=== PATIENT | female | born 1975 | race Caucasian/White ===

== ENCOUNTER 2017-12-30 14:51 | Inpatient (IN) | payer OTHER ==
--- OUTSIDE RECORDS SUMMARY | 2017-12-30 15:25 | XMS REPORT ---
:1975 External Reference #:[id number] Author Organization [employer] Address [address] [place] [address] [place] [address] Phone [phone] Care Team Providers Name Role Phone Derrell Galan MD Primary Care Physician Unavailable Payers Type Date Identification Numbers Payment Provider Subscriber Commercial Policy Number: [id number] Tyson Tong Group Name: [id number] [address] PayID: [id number] [place] [address] Medigap Part B Expires: 2017 Policy Number: [facility] Radha Jc [id number] Ppo Alycia Group Number: [id number] [address] [address] PayID: [id number] EITAN Bernstein [id number] Medigap Part B Expires: 2017 Policy Number: Medicaid Radha Tong [id number] PayID: [id number] [address] [place] [address] Problems Description No Information Family History Date Family Member(s) Problem(s) Comments General Heart Disease General cancer Social History Type Date Description Comments ETOH Use Denies alcohol use Smoking patient uses e cig Exercise Type/Frequency Negative For Does not exercise Allergies, Adverse Reactions, Alerts Date Description Reaction Status Severity Comments 06/01/2013 NKDA active Medications Medication Date Status Form Strength Qnty SIG Indications Ordering Provider Vistaril Active Unknown Wellbutrin SR Active Unknown Zyrtec Allergy Active Unknown Lisinopril Active Unknown Nadolol Active Unknown Ortho-Cyclen Active Unknown Prilosec Active Unknown Effexor XR Active Unknown Nystatin/Triamcin Active Unknown olone Albuterol Sulfate Active Unknown Meclizine HCL Active Unknown Colace Active Unknown Oxycodone HCL Active Unknown Amrix Active Unknown Ibuprofen Active Unknown Vital Signs Date Vital Result Comment 12/18/2017 Height 60 inches 5'0" Weight 224.25 lb Heart Rate 88 /min BP Systolic 124 mmHg BP Diastolic 80 mmHg Respiratory Rate 18 /min Pain Level 8 BMI (Body Mass Index) 43.8 kg/m2 06/01/2013 Height 60 inches 5'0" Weight 274.00 lb Heart Rate 76 /min BP Systolic 157 mmHg BP Diastolic 100 mmHg BMI (Body Mass Index) 53.5 kg/m2 Results Description No Information Procedures Date CPT Code Description Status 06/01/2013 67553 Xray Knee 3 Views Completed 06/01/2013 35324 Xray Knee 3 Views Completed Encounters Type Date Location Provider CPT E/M Dx Office Visit 06/01/2013 1:15p [facility] M.D. 94004 [phone] [facility] Plan of Care Future Appointment(s):01/19/2018 11:15 am - [facility] - Kemi Valderrama M.D.G56.03 Carpal tunnel syndrome, bilateral upper limbsFollow up:Follow up: 9-10 days postop Follow up :
[2017-12-30] MEDS ORDERED: NS 0.9% 1000 ML* 2,000 ML IV ONE (15:42)
--- NOTE | 2017-12-30 16:05 | ED ---
Syncope/Near Syncope - HPI Summary HPI Summary: Patient is a 42 y/o F w/ c/o syncope for the past three days. Provider in the room 1540. She reports that she was started on Effexor four days ago. Three days ago, she was in the kitchen with her daughter. She began to feel dizzy, experienced LOC in the kitchen. When she awoke, she states her daughter was standing over her screaming at her. She reports syncopal episodes the past two days as well. She notes some memory loss, slurred speech, visual hallucinations and body spasms in the room. RESENDIZ and dizziness are denied in room presently. Patient also notes some brief blurred vision, which resolved in the room. Patient reports that she has taken Effexor previously without these Sx. However , she notes at this time she was just taking Effexor and she is currently taking suboxone for chronic back pain. She called Dr. Vasquez today; a nurse picked up, told her that she would be contacted soon. An hour later, she received a call and was told to come to ED by ambulance. Patient is on depo, no periods. Patient smokes, alcohol and drug usage is denied. FHx of CVA in brother , PSHx of cholecystecomy, ectopic , gastric sleeve, and oral surgery. On triage, associated severity is 7/10, moving aggravates Sx, nothing is noted to alleviate Sx. BP is 90/47, pulse 71, o2 is 99. Of note, SAMSON Soto states that BP is difficult to obtain, possibly due to myoclonic jerks. Charles DAVIES did a manual BP that was 88 systolic. Allergies/Adverse Reactions: Allergies Allergy/AdvReac Type Severity Reaction Status Date / Time morphine Allergy HYPERACTIVE Verified 12/23/17 11:07 Home Medications: Home Medications Amitriptyline TAB* [Elavil TAB*] 50 mg PO BEDTIME 12/30/17 [History Confirmed ] Bisoprolol/Hydrochlorothiazide [Ziac 5-6.25 mg-] 1 tab PO DAILY 12/30/17 [ History Confirmed 12/30/17] Buprenorphine HCl/Naloxone HCl [Suboxone] 1 film SL BID 12/30/17 [History Confirmed 12/30/17] Bupropion XL* [Wellbutrin XL *] 150 mg PO DAILY 12/30/17 [History Confirmed 12/09] Cetirizine* [ZyrTEC 10 MG TAB*] 10 mg PO DAILY 12/30/17 [History Confirmed 12/30] Cyclobenzaprine TAB* [Flexeril 10 MG TAB*] 10 mg PO BEDTIME 12/30/17 [History Confirmed 12/30/17] Gabapentin TAB(NF) [Neurontin 600 mg TAB(NF)] 600 mg PO TID 12/30/17 [History Confirmed 12/30/17] Meclizine TAB* [Antivert 12.5 TAB*] 12.5 mg PO TID 12/30/17 [History Confirmed 12/30/17] Naproxen TAB* [Naprosyn 250 mg TAB*] 500 mg PO BID 12/30/17 [History Confirmed 12/30/17] Pantoprazole TAB (NF) [Protonix TAB (NF)] 40 mg PO DAILY 12/30/17 [History Confirmed 12/30/17] Sertraline* [Zoloft*] 200 mg PO DAILY 12/30/17 [History Confirmed 12/30/17] Valsartan TAB* [Diovan TAB*] 320 mg PO DAILY 12/30/17 [History Confirmed ] Venlafaxine EXT RELEASE CAP* [Effexor Xr CAP*] 150 mg PO DAILY 12/30/17 [ History Confirmed 12/30/17] medroxyPROGESTERone ACETATE* [DEPO-Provera*] 150 mg IM Q3M 12/30/17 [History Confirmed 12/30/17] - History Of Current Complaint Time Seen by Provider: 12/30/17 15:32 Hx Obtained From: Patient, Family/[employer] - male partner Onset/Duration: Lasting Days - syncope onset three days ago, Still Present - memory loss, slurred speech, visual hallucinations and body spasms Timing: Constant - memory loss, slurred speech, visual hallucinations and body spasms Context: Witnessed Activity At Onset: At Rest Associated Head Trauma: Yes Aggravating Factor(s): Nothing Alleviating Factor(s): Nothing Associated Signs And Symptoms: Dizzy, Head Trauma (Recent), Other - POSITIVE: syncope, memory loss, slurred speech, visual hallucinations, blurred vision and body spasms; dizziness before, none presently NEGATIVE: RESENDIZ Frequency: Episodes x___ - 3, Ongoing Incidents Of Syncope For (in Mins/Days/ Weeks/Years) - 3 days - Allergies/Home Medications Allergies/Adverse Reactions: Allergies Allergy/AdvReac Type Severity Reaction Status Date / Time morphine Allergy HYPERACTIVE Verified 12/23/17 11:07 Home Medications: Home Medications Amitriptyline TAB* [Elavil TAB*] 50 mg PO BEDTIME 12/30/17 [History Confirmed ] Bisoprolol/Hydrochlorothiazide [Ziac 5-6.25 mg-] 1 tab PO DAILY 12/30/17 [ History Confirmed 12/30/17] Buprenorphine HCl/Naloxone HCl [Suboxone] 1 film SL BID 12/30/17 [History Confirmed 12/30/17] Bupropion XL* [Wellbutrin XL *] 150 mg PO DAILY 12/30/17 [History Confirmed 12/09] Cetirizine* [ZyrTEC 10 MG TAB*] 10 mg PO DAILY 12/30/17 [History Confirmed 12/30] Cyclobenzaprine TAB* [Flexeril 10 MG TAB*] 10 mg PO BEDTIME 12/30/17 [History Confirmed 12/30/17] Gabapentin TAB(NF) [Neurontin 600 mg TAB(NF)] 600 mg PO TID 12/30/17 [History Confirmed 12/30/17] Meclizine TAB* [Antivert 12.5 TAB*] 12.5 mg PO TID 12/30/17 [History Confirmed 12/30/17] Naproxen TAB* [Naprosyn 250 mg TAB*] 500 mg PO BID 12/30/17 [History Confirmed 12/30/17] Pantoprazole TAB (NF) [Protonix TAB (NF)] 40 mg PO DAILY 12/30/17 [History Confirmed 12/30/17] Sertraline* [Zoloft*] 200 mg PO DAILY 12/30/17 [History Confirmed 12/30/17] Valsartan TAB* [Diovan TAB*] 320 mg PO DAILY 12/30/17 [History Confirmed ] Venlafaxine EXT RELEASE CAP* [Effexor Xr CAP*] 150 mg PO DAILY 12/30/17 [ History Confirmed 12/30/17] medroxyPROGESTERone ACETATE* [DEPO-Provera*] 150 mg IM Q3M 12/30/17 [History Confirmed 12/30/17] PMH/Surg Hx/FS Hx/Imm Hx Previously Healthy: No Endocrine/Hematology History: Denies: Hx Diabetes Cardiovascular History: Reports: Hx Hypertension Denies: Hx Pacemaker/ICD History: Denies: Hx Renal Disease Musculoskeletal History: Reports: Hx Back Problems - "broken back" Sensory History: Denies: Hx Hearing Aid Psychiatric History: Reports: Hx Depression, Hx Substance Abuse - on suboxone Denies: Hx Panic Disorder - Surgical History Surgery Procedure, Year, and Place: CHOLECYSTECTOMY. ECTOPIC - & RUPTURED FALLOPIAN TUBE. GASTRIC SLEEVE. ORAL SURGERY - UNDER SEDATION Infectious Disease History: No Infectious Disease History: Denies: Traveled Outside the [place] in Last 30 Days - Family History Known Family History: Positive: Other - CVA in brother - Social History Lives: With Family Alcohol Use: None Substance Use Type: Reports: Prescribed - suboxone Smoking Status (MU): Current Every Day Smoker Type: Cigarettes Review of Systems Negative: Fever - on vitals, temp is 97.6 F Positive: Blurred Vision - resolved in the room Cardiovascular: Negative Respiratory: Negative Gastrointestinal: Negative Positive: no symptoms reported Positive: Arthralgia - chronic back pain Skin: Negative Neurological: Other - POSITIVE: memory loss, visual hallucinations, body spasms ; dizziness in the past, none presently Positive: Syncope, Slurred Speech. Negative: Headache Psychological: Other - calm, cooperative All Other Systems Reviewed And Are Negative: Yes Physical Exam - Summary Physical Exam Summary: Appearance: Well-appearing, no pain distress, well-nourished; frequent UE and LE myoclonic jerks. Skin: Warm, color reflects adequate perfusion, dry Head: Normal Head/Face inspection, atraumatic Eyes: Conjunctiva clear, Pupils 3mm, round reactive to light, EOMI, no nystagmus ENT: Normal inspection, oral mucosa moist Neck: Supple, no nodes, no JVD, spines nontender, full ROM Respiratory: Lungs clear, normal breath sounds, no respiratory distress Cardio: RRR, No murmur, pulses normal, brisk capillary refill Abdomen: Soft, nontender Bowel sounds: Present Musculoskeletal: Strength Intact/ROM intact, no calf tenderness, no edema, no asterixis Psychological: Normal Neuro: A&O x3, CN II-XII intact, motor function 5/5, sensation intact, cerebellar normal;myoclonic jerks upper an lower extremities, no fasciculations , no focal deficit, GCS 15, NIH 0 Triage Information Reviewed: Yes Vital Signs On Initial Exam: Initial Vitals Temp Pulse Resp BP Pulse Ox 97.6 F 75 16 90/47 95 12/30/17 15:21 12/30/17 15:21 12/30/17 15:21 12/30/17 15:21 12/30/17 15:21 Vital Signs Reviewed: Yes Diagnostics - Vital Signs Vital Signs Temp Pulse Resp BP Pulse Ox 12/30/17 15:21 97.6 F 75 16 90/47 95 - Laboratory Result Diagrams: 12/31/17 05:24 12/31/17 05:24 Lab Statement: Any lab studies that have been ordered have been reviewed, and results considered in the medical decision making process. - Radiology CXR Xray Interpretation: Positive (See Comments) Radiology Interpretation Completed By: Radiologist - IMPRESSION: The appearance of increased density overlying the bilateral lungs could be due to interstitial density, vascular congestion or simply be the consequence of an incomplete inspiratory effort. This report was reviewed by ED physician. - CT brain ct CT Interpretation: No Acute Changes CT Interpretation Completed By: Radiologist - negative unenhanced ct; this report was reviewed by ed physician - EKG 1616 Cardiac Rate: NL - rate of 68 bpm EKG Rhythm: Sinus Rhythm ST Segment: Non-Specific Ectopy: None EKG Interpretation: nml AV/IV CT, nml QTc, and nml axis EKG Comparison: Other - no prior to compare Re-Evaluation - Re-Evaluation First Eval Re-Evaluation Time: 17:32 Change: Unchanged Comment: Informed patient of admission to [facility], patient is agreeable with plan. Course/Dx Assessment/Plan: Patient is a 42 y/o F w/ c/o syncope for the past three days. She reports that she was started on Effexor four days ago. She reports syncopal episodes the past two days as well. She notes some memory loss, slurred speech, visual hallucinations and body spasms in the room. RESENDIZ and dizziness are denied in room presently. Patient also notes some brief blurred vision, which resolved in the room. Patient reports that she has taken Effexor previously without these Sx. However, she notes at this time she was just taking Effexor and she is currently taking suboxone for chronic back pain. Dr. Vasquez was called today, recommended patient come to ED. Physical exam showed A&O x3, CN II-XII intact, motor function 5/5, sensation intact, cerebellar normal; GCS 15, NIH 0. Frequent UE and LE myoclonic jerks. During ED course, patient was given Ativan and fluids. Labs showed BNP 109, CRP 72.5, total creatine kinase 516, alk phos 197, BUN 50, creatinine 2.49, hgb 10.7, hct 33. CXR IMPRESSION: The appearance of increased density overlying the bilateral lungs could be due to interstitial density, vascular congestion or simply be the consequence of an incomplete inspiratory effort. Brain CT showed negative unenhanced CT. EKG showed sinus rhythm and rate of 68 bpm, non-specific ST, no ectopy, nml AV/IV CT, nml QTc, and nml axis. Pt's BP was low on admission, confirmed with manual cuff. Pt had no sign of sepsis or cardiac compromise, or any distress with these low BP's. BP 's thought possibly affected by myoclonic jerking. Pt hydrated with 2L NS in ED with some improvement in BP. Pt's myoclonic jerking possibly due to medication reaction with initiation of Effexor 1 day prior to sx onset. Myoclonic jerking also possibly due to acute kidney injury/uremia. Patient's case was discussed with Dr. Gonsalves at 1714, recommends admission. 1728 - Dr. Preciado was consulted, Dr. Preciado accepts patient for admission. Patient is agreeable with admission. Dx of syncope, acute kidney injury, and myoclonic jerking, hypotension, elevated CK. - Diagnoses Differential Diagnosis/HQI/PQRI: Positive: Cerebral Vascular Accident, Hypovolemia, Metabolic Reaction, Medication Reaction, Seizure Provider Diagnoses: Syncope, Acute kidney injury, Myoclonic jerking, Hypotension, Elevated CPK - Physician Notifications Discussed Care of Patient With: Duran Gonsalves Time Discussed With Above Provider: 17:14 Instructed by Provider To: Other - Patient's case was discussed with Dr. Gonsalves at 1714, recommends admission. 1729 - Dr. Preciado was consulted, Dr. Preciado accepts patient for admission - Critical Care Time Critical Care Time: 30-74 min - 30 minutes Discharge - Sign-Out/Discharge Documenting (check all that apply): Patient Departure - admit - Discharge Plan Condition: Good Disposition: ADMITTED TO [facility] - Billing Disposition and Condition Condition: GOOD Disposition: Admitted to [facility] - Attestation Statements Document Initiated by Bonyibtheron: Yes Documenting Scribe: Jaime Rivera Provider For Whom Scribe is Documenting (Include Credential): Sandhya Guevara MD Scribe Attestation: Jaime Sykes , scribed for Sandhya Guevara MD on 01/01/18 at 0316. Scribe Documentation Reviewed: Yes Provider Attestation: The documentation as recorded by the Jaime benavidez accurately reflects the service I personally performed and the decisions made by me, Sandhya Guevara MD
[2017-12-30 16:31] LABS: INR 0.98 (0.77-1.02)
[2017-12-30 16:32] LABS: ABS Basophils 0 10^3/ul (0-0.2); ABS Eosinophils 0.4 10^3/ul (0-0.6); ABS Lymphocytes 2.5 10^3/ul (1.0-4.8); ABS Monocytes 0.8 10^3/ul (0-0.8); ABS Neutrophils 3.8 10^3/ul (1.5-7.7); ABS Nucleated RBC 0 10^3/ul; Eosinophil % 5.4 % (0-6); Hematocrit 33 % (35-47); Hemoglobin 10.7 g/dl (12.0-16.0); Lymphocyte % 33.1 % (25-47); Mean Corpuscular HGB Conc 33 g/dl (31-36); Mean Corpuscular Hemoglobin 26 pg (27-31); Mean Corpuscular Volume 81 fL (80-97); Mean Platelet Volume 10.3 um3 (7.4-10.4); Nucleated Red Blood Cells % 0.1; Platelet Count 203 10^3/ul (150-450); Red Blood Count 4.05 10^6/ul (4.00-5.40); Red Cell Distribution Width 17 % (10.5-15); White Blood Count 7.7 10^3/ul (3.5-10.8)
[2017-12-30 16:34] LABS: EGFR Non-African American 21.3 (>60)
--- NOTE | 2017-12-30 16:35 | RAD ---
Indication: Syncope. Memory loss. Tremor. Comparison: No relevant prior exams available on the [facility] PACS for comparison. Technique: Noncontrast CT vertex of skull through foramen magnum. Report: Mild mild motion artifact noted. The sulci, ventricles, and basal cisterns are normal for age. Elizalde matter white matter differentiation is preserved without evidence for edema. No intra or extra axial hemorrhage, mass, or fluid collection detected. Unremarkable visualized orbital contents. Unremarkable calvarium and skull base. Unremarkable scalp. The visualized paranasal sinuses and mastoid air spaces are clear. IMPRESSION: #. Negative unenhanced head CT.
--- NOTE | 2017-12-30 16:52 | RAD ---
INDICATION: Syncope COMPARISON: None. TECHNIQUE: Single AP portable view of the chest was obtained. FINDINGS: Image quality is compromised due to the relative inferiority of a portable chest x-ray. The heart and mediastinum exhibit normal size and contour. What appears to be a poor inspiratory effort causes the appearance of increased interstitial lung markings and/or engorgement of the pulmonary vasculature. There is no lobar consolidation. Visualized bones are normal for the patient's age. IMPRESSION: The appearance of increased density overlying the bilateral lungs could be due to interstitial density, vascular congestion or simply be the consequence of an incomplete inspiratory effort.
[2017-12-30] MEDS ORDERED: LORazepam TAB(*) 1 MG PO ONE (17:16)
[2017-12-30] MEDS ORDERED: LORazepam TAB(*) 1 MG PO PRN (18:39)
[2017-12-30] MEDS ORDERED: Acetaminophen TAB* 325 MG PO PRN (18:46)
[2017-12-30] MEDS ORDERED: Al Hydrox/Mg Hydrox/Simet LIQ* 30 ML UDC PO PRN (18:46)
[2017-12-30] MEDS ORDERED: cefTRIAXone(*) 1 GM in NS 0.9% 50 ML* 50 ML IVPB SCH (20:00)
--- NOTE | 2017-12-30 20:54 | RAD ---
EXAM: MR Lumbar Spine Without Intravenous Contrast EXAM DATE/TIME: 12/30/2017 8:07 PM CLINICAL HISTORY: The patient age is 42 years old and is female; Pain and signs and symptoms; Other: Involuntary twitching bilat legs; Low back pain; Patient HX: Pt C/O low back pain and involuntary twitching in bilat legs; Additional info: R/O stenosis. *pt unable to control leg movements- a lot of motion in images. We immobilized pt's legs as best as possible with a strap and i ran all propeller scans to reduce motion artifact. Best possible images sent. Facility exam id and description: Mr lsp wo mri lumbar spine w/o TECHNIQUE: Magnetic resonance images of the lumbar spine without intravenous contrast in multiple planes. COMPARISON: No relevant prior studies available. FINDINGS: Artifacts: Motion artifact limits this study. Vertebrae: There is grade I anterolisthesis of L3 on L4. The lumbar vertebral bodies are normal in height, without acute marrow edema. Spinal cord: The distal end of the conus medullaris ends at T12, normal in position. Soft tissues: There is nonspecific edema within the subcutaneous tissues posterior to lumbar spine. DISCS/SPINAL CANAL/NEURAL FORAMINA: L1-L2: There is no significant narrowing of the thecal sac or neural foramina. L2-L3: There is no significant narrowing of the thecal sac or neural foramina. L3-L4: There is a decrease of disc height at this level, bilateral facet arthropathy. A broad based disc protrusion is visualized, with mild narrowing of the thecal sac and narrowing of both lateral recesses. Moderate to severe right and severe left neural foramina is identified. There is encroachment on the exiting left L3 nerve root. L4-L5: There is bilateral facet arthropathy. Mild disc bulging is visualized, without significant narrowing of the thecal sac. Moderate left neural foramina is identified. There is mild bulging of the right neural foramen, without significant neural foraminal narrowing. L5-S1: There is bilateral facet arthropathy. There is mild disc bulging, without significant narrowing of the thecal sac. Mild left neural foramina is identified. There is no significant narrowing of the right neural foramen. IMPRESSION: 1. There is grade I anterolisthesis of L3 on L4. 2. Degenerative changes are visualized from L3-4 through L5-S1, as described above. 3. At L3-4, a broad based disc protrusion is visualized, with mild narrowing of the thecal sac and narrowing of both lateral recesses. 4. Neural foramina is identified from L3-4 through L5-S1, as detailed above. There is encroachment on the exiting left L3 nerve root. 5. Additional findings described above. To contact [facility] with a general question: [facility] - [phone] For direct physician to physician contact: Physician Hotline - [phone] [facility] ([facility] Facility ID #[id number])
[2017-12-30 21:03] LABS: Urine Appearance Cloudy; Urine Blood 1+ (Negative); Urine Color Yellow; Urine Ketones Negative (Negative); Urine Protein Negative (Negative); Urine Red Blood Cell Trace(0-2/hpf) (Absent); Urine Specific Gravity 1.015 (1.010-1.030); Urine Urobilinogen Negative (Negative); Urine White Blood Cell Trace(0-5/hpf) (Absent)
[2017-12-30] MEDS: Heparin VIAL(*) 5000 UNITS/ML VIAL (FIVE THOUSAND) SUBCUT SCH (21:39)
[2017-12-30] MEDS: NS 0.9% 1000 ML* 1,000 ML IV SCH (21:39)
[2017-12-30] MEDS: Docusate CAP* 100 MG PO SCH (21:40)
[2017-12-30] MEDS: Buprenorphine/Naloxone 8-2 MG SL TAB* 1 TAB PO SCH (21:40)
--- NOTE | 2017-12-31 00:48 | HP ---
CC: Dr. Amira Vasquez; a staff from [facility] Medical Office in [facility]; Dr. Hedy Pickett; [facility]; Dr. Gonsalves * HISTORY AND PHYSICAL: DATE OF ADMISSION: 12/30/17 PRIMARY CARE PROVIDER: Dr. Amira Vasquez. CHIEF COMPLAINT: Episodes of fainting and bilateral lower extremity twitching. HISTORY OF PRESENT ILLNESS: Nano Tong is a 42-year-old female with history of obesity, status post gastric sleeve surgery, as well as "broken back " and chronic pain, who presented to the hospital complaining of passing out for the past 3 days and bilateral lower extremity jerking movements for the past 3 or 4 days. The patient stated that she was started on Effexor 4 days ago. Suboxone was started by [facility] approximately 3 weeks ago. The patient has a history of depression and goes to [facility] and she is also on Wellbutrin XL as well as Zoloft for her depression in addition to amitriptyline. The patient stated that a couple of times, she was walking up the stairs and her daughter noted that her mother was "out of it." That happened 3 days ago. Today, she was trying to walk up in the stairs and she walked up on the floor. Her daughter who witnessed the event stated that the patient had a syncopal episode/fainted for approximately 2 to 3 minutes. When the patient was evaluated in the emergency department, she was noted to have myoclonic jerking in bilateral lower extremities. It appears that the patient has significant polypharmacy including 4 antidepressants, Flexeril, and multiple other medications that could cause serotonin syndrome, which is now on the main diagnosis on differential. The patient also is in acute renal failure and has no urinary complaints. She had been eating and drinking fine and denies any problems with low p.o. intake in the past several days. The patient's systolic pressure is in the 70s, obtained in the emergency department. I suspect that the blood pressure cuff may have been too small for this large lady. She has no symptoms of hypotension when evaluated in the hospital bed, but she was not stood up for this evaluation today. She is going to be placed on overnight observation with the diagnosis of syncope and acute renal failure and question of serotonin syndrome. PAST MEDICAL HISTORY: 1. History of "broken back." The patient never had surgery for it, but has chronic pain due to that. 2. Status post cholecystectomy. 3. History for surgery for ectopic . 4. History of gastric sleeve surgery. 5. History of osteoarthritis of the left hip for which the patient was scheduled to have an MRI performed as outpatient, has not done so yet. 6. History of right-sided carpal tunnel syndrome with intermittent numbness in the fingers. 7. History of hypertension. MEDICATIONS: At home include: 1. Suboxone 4 mg b.i.d. 2. Depo-Provera 150 mg IM every 3 months. 3. Naproxen 500 mg b.i.d. 4. Ziac 5/6.25 one tablet daily. 5. Zyrtec 10 mg daily. 6. Wellbutrin XL 150 mg daily. 7. Protonix 40 mg daily. 8. Diovan 320 mg daily. 9. Flexeril 10 mg at bedtime. 10. Meclizine 12.5 mg 3 times a day p.r.n. 11. Elavil 50 mg at bedtime. 12. Effexor XR 150 mg daily. 13. Zoloft 200 mg daily. 14. Neurontin 600 mg 3 times a day. ALLERGIES: Include MORPHINE. FAMILY HISTORY: Positive for mother who had a heart attack at the age of 39 and currently has macular degeneration and problems with vision. Father who is 82 had a history of colon cancer in his 60s. SOCIAL HISTORY: The patient lives at home, takes care of her 3 children, the youngest is 5 years old. Her mother, her father, and her sister live in the area. Her mother is the surrogate, Elisabeth Ferreira. She ambulates with a cane. She smokes half a pack per day and she has been doing so ever since she turned 17. She denies any alcohol or drug use. She has a boyfriend. REVIEW OF SYSTEMS: Please see history of present illness. Positive for chronic pain that had not been exacerbated. The patient has chronic left hip problems and pain. Ambulates with a cane. The patient also has problems with carpal tunnel syndrome on right side, mostly numbness, and occasionally in the right hand fingers. The patient stated that she had last bowel movement 2 days ago. She denies any abdominal pain. In regard to her urinary symptoms, she has not had any problems with burning, urgency, or dysuria. Once again, in regard to her chronic pain, no new events. In regard to the patient's chronic unsteady gait, she ambulates with a cane. She states that she feels like she needs a roller walker. She has not had problems with any focal weakness. She noted that she had jerking movements in the past 3 days. Her Flexeril was started 4 to 5 days ago. All the remaining 12 systems were reviewed with the patient and were otherwise negative. PHYSICAL EXAMINATION GENERAL: The patient is a very pleasant 42-year-old morbidly obese female with a BMI of 42. The patient is in no acute distress. Alert, awake, and oriented x3. VITAL SIGNS: Blood pressure of 74/38, heart rate of 73 and regular, respiratory rate 16, oxygen saturation 100% on room air, temperature of 97.6. HEENT: Head: Atraumatic, normocephalic. Eyes: Pupils are equal, reactive to light and accommodation. Oropharynx clear. Mucosa moist. NECK: Supple. No JVD. No bruits bilaterally. RESPIRATORY: Clear to auscultation bilaterally. CARDIOVASCULAR: Regular rate and rhythm. 2/6 DAGO ABDOMEN: Obese, soft, nontender. Bowel sounds present in all 4 quadrants. EXTREMITIES: There is trace bilateral pedal edema. Pulses are +2 bilaterally. There is no clubbing or cyanosis. NEUROLOGIC: On neuro evaluation, speech is clear. Cranial nerves II through XII grossly intact. Motor strength is 5/5 bilaterally. The patient has increased deep tendon reflexes in bilateral upper and lower extremities, mildly so. Babinski is negative bilaterally. Muscle tone is within normal limits in bilateral upper and lower extremities. The patient has rare myoclonic jerks in bilateral lower extremities, did occur every few minutes. PSYCHIATRIC: Oriented x3 with no evidence of anxiety or depression. SKIN: No ecchymotic areas or rashes noted. DIAGNOSTIC STUDIES/LAB DATA: Laboratory data showed sodium of 137, potassium 3.9, chloride 105, carbon dioxide 24, BUN 50, creatinine 2.49. Liver function tests unremarkable apart from alkaline phosphatase of 197. Total CPK of 516. C -reactive protein of 72. TSH of 0.54. D-dimer of below 200. White blood cell count of 7.7, hemoglobin of 10.7, hematocrit of 33, and platelets of 203. Toxicology showed alcohol below 10. Brain CT showed "negative unenhanced head CT." Portable chest x-ray, impression: "The appearance of an increased density overlying the bilateral lungs could be due to interstitial density, vascular congestion, or simply consequence of an incomplete respiratory effort." The patient's EKG, normal sinus rhythm with negative T waves in lead III and flattening of T waves in lead aVF. There was no old EKG available for comparison. ASSESSMENT AND PLAN: 1. The patient appears dehydrated and hypotensive. At this point, the patient has no evidence of hypoperfusion on her laboratory tests apart from this that she is dehydrated with acute kidney injury. Her LFTs are normal except elevated in her alkaline phosphatase, which was elevated in the past. Her lactic acid is within normal limits. I suspect that her blood pressures are actually noted in the 70s, but her blood pressure probably was checked with improperly measured blood pressure cuff that is going to be repeated. We will continue intravenous fluids with normal saline at 100 mL an hour. She also received already 2 liters of intravenous fluid boluses. The patient does not appear toxic or infected, but due to that that she still have not received a urinalysis from this patient despite the order being placed by the ED physician several hours ago, I will place the patient on empiric ceftriaxone for the time being. 2. In regard to patient's myoclonic jerking and elevated CPK as well as acute kidney injury, I suspect that is like the serotonin syndrome. The patient is on 4 antidepressants in total as well as muscle relaxant and anticholinergic agent. At this point, the patient is going to be continued on Zoloft only. Discontinue all the other antidepressants. I will take the patient off Flexeril. I will ask Dr. Gonsalves to evaluate the patient in the morning. 3. The patient does have mild hyperreflexia that may be due to the serotonin syndrome, but due to her history of back injury and the myoclonic jerks being in bilateral lower extremities, I will check an MRI of the lumbar spine. The patient is going to be placed on neuro checks. Postvoid residual is also going to be obtained. 4. For DVT prophylaxis, the patient is going to be placed on heparin subcutaneously. 5. For her hypertension, all of her medications are going to be held due to hypotension. 6. The patient's code status is full and her surrogate is her mother. 7. The patient has marked deconditioning. I will place the patient on physical therapy and occupational therapy evaluation. TIME SPENT: Approximately 60 minutes were spent on admission of this patient, more than half of that time was spent [id number] with the patient during the interview and physical exam. [id number]/[facility] #: [id number] MTDD
[2017-12-31] MEDS: Heparin VIAL(*) 5000 UNITS/ML VIAL (FIVE THOUSAND) SUBCUT SCH ×3 (06:09→22:04)
[2017-12-31 06:26] LABS: Hematocrit 29 % (35-47); Hemoglobin 9.3 g/dl (12.0-16.0); Mean Corpuscular HGB Conc 33 g/dl (31-36); Mean Corpuscular Hemoglobin 27 pg (27-31); Mean Corpuscular Volume 82 fL (80-97); Mean Platelet Volume 10.6 um3 (7.4-10.4); Platelet Count 166 10^3/ul (150-450); Red Blood Count 3.49 10^6/ul (4.00-5.40); Red Cell Distribution Width 16 % (10.5-15)
[2017-12-31 06:54] LABS: EGFR Non-African American 26.7 (>60)
[2017-12-31] MEDS: NS 0.9% 1000 ML* 1,000 ML IV SCH (08:25)
[2017-12-31] MEDS: Sertraline* 100 MG TAB PO SCH (08:26)
[2017-12-31] MEDS: Buprenorphine/Naloxone 8-2 MG SL TAB* 1 TAB PO SCH ×2 (08:27→22:02)
[2017-12-31] MEDS: Docusate CAP* 100 MG PO SCH ×2 (08:27→22:04)
--- NOTE | 2017-12-31 09:45 | RAD ---
HISTORY: re: [facility] COMPARISONS: None TECHNIQUE: Multiple transverse and longitudinal ultrasound images were obtained of the kidneys using grayscale and color Doppler imaging. FINDINGS: RIGHT KIDNEY: The right kidney is normal in shape, size, contour, and echogenicity. There is no hydronephrosis or nephrolithiasis. The right kidney measures 11.1 x 4 x 5.2 cm. LEFT KIDNEY: The left kidney is normal in shape, size, contour, and echogenicity. There is no hydronephrosis or nephrolithiasis. The left kidney measures 11.6 x 4 x 4.2 cm. BLADDER: No images are submitted of the bladder. AORTA AND IVC: No images are submitted of the vasculature. RETROPERITONEUM: Unremarkable. OTHER: None. IMPRESSION: NO HYDRONEPHROSIS OR NEPHROLITHIASIS
[2017-12-31] MEDS: Nicotine PATCH 14 MG/24 HR* PATCH TRANSDERM SCH (10:44)
[2017-12-31] MEDS ORDERED: NS 0.9% 500 ML* 500 ML IV ONE (15:45)
--- NOTE | 2017-12-31 15:47 | PN ---
Subjective Date of Service: 12/31/17 Interval History: Pt can't keep awake today. Denies feeling tired. C/o chronic left hip pain Objective Active Medications: Acetaminophen (Tylenol Tab*) 650 mg PO Q4H PRN PRN Reason: FEVER/PAIN Al Hydrox/Mg Hydrox/Simethicone (Maalox Plus*) 30 ml PO Q6H PRN PRN Reason: INDIGESTION Buprenorphine/Naloxone (Suboxone 8-2 Mg Sl Tab*) 0.5 tab.sl PO BID [facility] Docusate Sodium (Colace Cap*) 100 mg PO BID [facility] Last Admin: 12/31/17 08:27 Dose: 100 mg Heparin Sodium (Porcine) (Heparin Vial(*)) 5,000 units SUBCUT Q8HR [facility] Last Admin: 12/31/17 14:12 Dose: 5,000 units Sodium Chloride (Ns 0.9% 1000 Ml*) 1,000 mls @ 100 mls/hr IV PER RATE [facility] Last Admin: 12/31/17 08:25 Dose: 100 mls/hr Nicotine (Nicotine Patch 14 Mg/24 Hr*) 1 patch TRANSDERM DAILY [facility] Last Admin: 12/31/17 10:44 Dose: 1 patch Sertraline HCl (Zoloft*) 200 mg PO DAILY [facility] Last Admin: 12/31/17 08:26 Dose: 200 mg Vital Signs - 8 hr 12/31/17 12/31/17 12/31/17 08:27 10:45 12:03 Temperature 98.1 F Pulse Rate 69 Respiratory 22 16 20 Rate Blood Pressure 79/40 (mmHg) O2 Sat by Pulse 93 Oximetry 12/31/17 12:10 Temperature Pulse Rate Respiratory Rate Blood Pressure 90/58 (mmHg) O2 Sat by Pulse Oximetry Oxygen Devices in Use Now: None Appearance: 42 yo obese F in NAD, AAOx3 falls asleep in between sentences Eyes: No Scleral Icterus, PERRLA Ears/Nose/Mouth/Throat: NL Teeth, Lips, Gums, Mucous Membranes Moist Neck: NL Appearance and Movements; NL JVP, Trachea Midline Respiratory: Symmetrical Chest Expansion and Respiratory Effort Cardiovascular: NL Sounds; No Murmurs; No JVD, RRR Abdominal: NL Sounds; No Tenderness; No Distention Lymphatic: No Cervical Adenopathy, No Axillary Adenopathy Extremities: No Edema, No Clubbing, Cyanosis Skin: No Rash or Ulcers, No Nodules or Sclerosis Neurological: Alert and Oriented x 3, NL Muscle Strength and Tone, - - mycolonic jerks very rare, noted in b/l LE's Result Diagrams: 12/31/17 05:24 12/31/17 05:24 Microbiology and Other Data: Microbiology 12/31/17 13:51 Stool Occult Blood (TERI) - Final Stool Assess/Plan/Problems-Billing Assessment: 42 yo f with h/o chronic pain, depression, obesity presented with hypotension, syncope,acute renal failure and myoclonic jerks - Patient Problems (1) Hypotension Comment: likley due to dehydration, resolving (2) Acute renal failure Comment: creat in 09/2017 was<1 now improving slowly with hydration Renal US, UA unremarkable likely prerenal (3) Myoclonus Comment: could be related to serotonin syndrome, or is it a reaction due to starting Effexor? Pt's Effexor, Wellbutrin and Elavil were discontinued. As well as Flexeril and gabapentin (that could cause lethargy). Zoloft cont for now D/w Dr. Gonsalves EEG ordered MRI L spine shows L3 nerve impingement that could cause left hip pain. (4) Chronic pain Comment: due to lethargy will stop suboxone (was initiated 3 weeks ago). check Ammonia level (5) Elevated CPK Comment: due to myoclonus and acute renal failure, improving (6) Anemia Comment: normocytic stool heme neg Ferritin low, iron low normal indicating iron defficiency. Will start iron supplement (7) DVT prophylaxis Comment: HSQ Status and Disposition: OBV will be changed to inpatient
--- NOTE | 2017-12-31 21:58 | CONS ---
CONSULTATION REPORT: DATE OF CONSULT: 12/31/17 PATIENT OF: Dr. Abdul, Dr. Vasquez, and Dr. Hedy Pickett. HISTORY OF PRESENT ILLNESS: This is a 42-year-old woman, I am asked to evaluate for myoclonic jerks who presented for episodes of passing out and lower extremity jerking for the past 4 days. She noted that the jerking has settled down since her medications have been adjusted in the hospital and she has felt tired also and had apparent fainting episode during this time as well. She has had longstanding intention tremor but the myoclonic jerks or twitching had been new. PAST MEDICAL HISTORY: 1. She has also had some acute renal insufficiency. 2. She has "history of broken back", but has not had surgery, but has chronic pain for this. 3. Status post cholecystectomy. 4. Surgery for ectopic . 5. She is status post gastric sleeve surgery. 6. Osteoarthritis for her left hip. 7. Right carpal tunnel syndrome with intermittent numbness in the fingers. 8. History of hypertension. MEDICATIONS: At home includes: 1. Suboxone 4 mg b.i.d. 2. Depo-Provera 150 mg every 3 months. 3. Naproxen 500 mg b.i.d. 4. Ziac 5/6.25 one daily. 5. Zyrtec 10 mg daily. 6. Wellbutrin 150 mg XL daily. 7. Protonix 40 mg daily. 8. Diovan 320 daily. 9. Flexeril 10 mg at bedtime. 10. Meclizine 12.5 mg 3 times a day p.r.n. 11. Elavil 50 mg at bedtime. 12. Effexor XR 150 mg daily. 13. Zoloft 200 mg daily. 14. Neurontin 600 mg 3 times a day. ALLERGIES: She is allergic to MORPHINE. FAMILY HISTORY: Mother had a heart attack at age 39. The father is 82 and had a history of colon cancer. SOCIAL HISTORY: She lives at home and takes care of her 3 children. REVIEW OF SYSTEMS: Negative in all 14 spheres other than symptoms stated above. She does have some constipation. She ambulates with a cane because of her hip pain. PHYSICAL EXAM: When she was first in the ER, blood pressure was only 73/32, currently it is 98/50 but recently was 77/42. Temperature 98.5, pulse 68, respirations 16. She is alert and oriented with normal speech and comprehension. Cranial nerves II through XII were intact. Fundi were benign. Motor exam revealed normal tone , strength, coordination. She walked with a limp but this is normal for her. She had occasional quick twitches and she has an intention tremor. Reflexes were 1 and equal. Toes were downgoing. Chest: Clear. Cardiovascular: Regular rate and rhythm. Abdomen: Soft with positive bowel sounds. DIAGNOSTIC STUDIES/LAB DATA: White count is 5, hematocrit 29, platelets 166. Normal INR and PTT. Her BUN is 44 today, creatinine 2.0, yesterday was 15 and 2.49. Rest of BMP was normal. Calcium is 7.9. Normal liver function tests. Alk phos 166. CPK was 310. It was 516 when she first came in. Vitamin B is 930. Folate normal. TSH normal. UA had hyaline casts in it and she was positive for presumptive amphetamines on her urine. Her EEG showed some mild diffuse slowing. This maybe secondary to medication. She had twitching during the exam, but there was no epileptiform discharges then or at any other time. She had a lumbar MRI scan which showed some degenerative disc disease at L3-4 through L5-S1. She had a brain CT scan which is normal. IMPRESSION AND PLAN: The patient has a few things going on here, her myoclonic jerks may be secondary to medications. Her metabolic changes is not related to any tendency toward seizure as best I can tell from both the history, she has had _ time of her myoclonic seizures to present and her EEG was normal during the twitching. I think her fainting episode may be related to hypotension and dehydration. She also has some disc disease but no clear weakness related, I do not think any further changes needed to be done in that regard. I think her elevated CPK may have been secondary to a fall since it is coming down quickly. I agree with Dr. Abdul regarding simplifying her medical regimen. She did have a presumed stimulants in her urine tox scree. It is possible that illicit drugs were also contributing to some of her symptoms. I do not think she needs further neurological treatment at this point. Thank you for sharing her case. [id number]/[facility] #: [id number] [facility] HOSPITALTosha
[2018-01-01 05:42] LABS: ABS Basophils 0 10^3/ul (0-0.2); ABS Eosinophils 0.3 10^3/ul (0-0.6); ABS Monocytes 0.6 10^3/ul (0-0.8); ABS Neutrophils 1.8 10^3/ul (1.5-7.7); ABS Nucleated RBC 0 10^3/ul; Eosinophil % 7.2 % (0-6); Hematocrit 29 % (35-47); Hemoglobin 9.4 g/dl (12.0-16.0); Lymphocyte % 41.3 % (25-47); Mean Corpuscular HGB Conc 32 g/dl (31-36); Mean Corpuscular Hemoglobin 26 pg (27-31); Mean Corpuscular Volume 82 fL (80-97); Mean Platelet Volume 9.7 um3 (7.4-10.4); Nucleated Red Blood Cells % 0.1; Platelet Count 164 10^3/ul (150-450); Red Blood Count 3.55 10^6/ul (4.00-5.40); Red Cell Distribution Width 16 % (10.5-15); White Blood Count 4.8 10^3/ul (3.5-10.8)
[2018-01-01 06:07] LABS: EGFR Non-African American 81.4 (>60)
[2018-01-01] MEDS: Heparin VIAL(*) 5000 UNITS/ML VIAL (FIVE THOUSAND) SUBCUT SCH ×2 (06:14→13:00)
[2018-01-01] MEDS: Sertraline* 100 MG TAB PO SCH (08:14)
[2018-01-01] MEDS: Buprenorphine/Naloxone 8-2 MG SL TAB* 1 TAB PO SCH (08:16)
[2018-01-01] MEDS: Docusate CAP* 100 MG PO SCH (08:16)
[2018-01-01] MEDS: Nicotine PATCH 14 MG/24 HR* PATCH TRANSDERM SCH (08:16)
[2018-01-01] MEDS ORDERED: Ferrous Sulfate TAB* 325 MG PO SCH (09:00)
[2018-01-01 11:32] VITALS: BP 109/53
--- NOTE | 2018-01-02 03:30 | EEG ---
ELECTROENCEPHALOGRAPHY: DATE OF STUDY: DATE OF DICTATION: 01/01/2018. PATIENT OF: Randall Abdul. CLINICAL PROBLEM: This is a 42-year-old woman being evaluated for myoclonic twitching and an episode of fainting in the past couple of days' time. This study was done to evaluate for possible seizures. MEDICATIONS: Include: 1. Suboxone. 2. Docusate. 3. Heparin. 4. Sertraline. 5. Maalox. 6. Lorazepam. REPORT: With the patient awake, background cerebral activity consists of moderate amplitude posterior dominant 6 to 7 Hz rhythm. There is some bilateral twitching going on throughout this recording, but no electrographic changes are noted during and there are no epileptiform discharges noted throughout. No major asymmetries of background or focal asymmetries are present. CLINICAL IMPRESSION: This awake EEG did not show any epileptiform potentials including during times of myoclonic jerks or twitching. There is some slowing of background, which may be secondary to medications the patient is consuming. [id number]/[facility] #: [id number] [facility]
--- NOTE | 2018-01-02 07:04 | DS ---
CC: Dr. Amira Vasquez; [facility], [facility]; Dr. Hedy Pickett; [facility]; Dr. Gonsalves* DISCHARGE SUMMARY: DATE OF ADMISSION: 12/30/17 DATE OF DISCHARGE: 01/01/18 PRIMARY CARE PROVIDER: Dr. Amira Vasquez. DISCHARGE DIAGNOSES: 1. Myoclonic jerks. 2. Dehydration and hypotension likely due to polypharmacy. 3. Acute kidney injury due to dehydration. 4. Mild elevation of CPK likely due to fall and dehydration. 5. Lumbar radiculopathy, which is chronic. SECONDARY DIAGNOSES: 1. History of chronic pain syndrome. 2. History of status post cholecystectomy. 3. History of surgery for ectopic . 4. History of gastric sleeve surgery. 5. History of osteoarthritis. 6. History of carpal tunnel syndrome. 7. Hypertension. MEDICATIONS AT DISCHARGE: Include: 1. Depo-Provera on every 3-month injection basis. 2. Naproxen 500 mg b.i.d. p.r.n. 3. Protonix 40 mg daily. 4. Zoloft 200 mg daily. 5. Acetaminophen on p.r.n. basis. 6. Ferrous sulfate 325 mg daily. LABORATORY DATA AND STUDIES PERFORMED DURING THE HOSPITAL STAY: On 01/01/18, white blood cell count of 4.8, hemoglobin 9.4, hematocrit 29, and platelets of 164. Sodium of 142, potassium 4.8, chloride 115, carbon dioxide 26, BUN 28, creatinine 0.78. CPK today was 188. Alkaline phosphatase was 157. Urine drug screen was positive for amphetamine, is negative for everything else , which included cannabinoids, cocaine, phencyclidine, barbiturate, and opiates. Renal ultrasound obtained on 12/31/17, impression: "No hydronephrosis or nephrolithiasis." Lumbar spine MRI, impression: "There is grade 1 anterolisthesis of L3-L4. Degenerative changes are visualized from L3 to L4 through L5 and S1. At L3 and L4, a broad-based disk protrusion is visualized with mild narrowing of the thecal sac and narrowing of both lateral recesses. Neural foramina is identified at L3-4 through L5-S1 as detailed above. There is encroachment of the exiting left L3 nerve root." Portable chest x-ray, impression: "The appearance of increased density overlying the bilateral lungs could be due to interstitial density, vascular congestion, or simply be the consequence of incomplete inspiratory effort." Brain CT, impression: "Negative unenhanced CT." CONSULTATIONS DURING THE HOSPITAL STAY: Included Dr. Gonsalves from Neurology. HOSPITALIZATION COURSE: Ms. Tong is a 42-year-old obese female, who has history of chronic pain. She was placed on Suboxone 2 weeks ago. On Effexor, she was just started in addition to another antidepressant 4 days prior to her presentation in the emergency department with fainting spells, dehydration, hypotension, and acute renal failure. The patient also has had intermittent myoclonic jerks. The patient was admitted to the hospital, rehydrated. Most of her medications for her depression were held for serotonin syndrome and that included Wellbutrin, Elavil, and Effexor. The patient was left on Zoloft. Her Neurontin was also discontinued as well as Flexeril and Zyrtec. She was continued on Zoloft and Suboxone. She was continued on Suboxone patient dose and she was noted to be very sedated on it. That was discontinued the day prior to discharge and the patient had no more lethargy evident. She has still complained of left hip pain and outpatient physical therapy was recommended due to lumbar radiculopathy that was also proven by the MRI obtained during the patient's hospital stay. The patient was seen by Dr. Gonsalves from Neurology, who thought that the patient's presentation was likely due to polypharmacy and will resolve with time after most of her medications were discontinued. In fact, there were no myoclonus noted. At discharge, the patient complained that she still had occasional "twitches." Her acute renal failure resolved most likely due to dehydration. There was no apparent kidney disease at presentation and her renal ultrasound was unremarkable. The patient also had pretty unremarkable urinalysis at admission. The patient's CPK was elevated likely due to fall prior to admission. By the time of discharge, the patient ambulates without any problem with slight limp on the left side. She is ready to go home. She is recommended to follow up with [facility] to continue following treatment with her depression. The patient is advised to go back to [facility] and to discuss with them possibility of managing her chronic pain by other means since the half dose of Suboxone appears to be too sedating for the patient. Please also note that the patient was noted to have normocytic anemia and her iron studies showed iron level of 66, ferritin of 10.3. That indicates iron deficiency and the patient was placed on iron supplement during the hospital stay. She did have stool that was heme negative. PHYSICAL EXAM AT THE TIME OF DISCHARGE: Blood pressure of 109/53, heart rate of 70 and regular, respiratory rate 16, oxygen saturation 98% on room air, temperature of 98.1. General: The patient is a very pleasant obese 42-year- old female who is in no acute distress. Alert, awake, and oriented x3. HEENT: Head, atraumatic, normocephalic. Eyes: Pupils are equal and reactive to light and accommodation. Oropharynx clear. Mucosa moist. Neck: Supple. No JVD. No bruit bilaterally. Cardiovascular: Regular rate and rhythm. No murmur. Respiratory: Clear to auscultation bilaterally. Abdomen: Soft, nontender. Bowel sounds are present in all 4 quadrants. Extremities: There is no edema. Pulses +2 bilaterally. No clubbing or cyanosis. Neurologically, the patient has mild left lower extremity weakness mostly related to pain. There is good muscle tone and strength throughout. Speech is clear. Cranial nerves II through XII grossly intact. Please note that this is a short summary of the patient's hospitalization. Please refer to further medical records for details. TIME SPENT: Approximately 45 minutes was spent on the patient's discharge. [id number]/[facility] #: [id number] [facility]
== END 2018-01-01 15:49 | disposition home or self-care (01) | DRG 460 ==
LOC: ED 14:51 → MEDTELE 18:03 → OBSVTOIN 12-31 16:26
PROVIDERS: ADMIT Internal Medicine; ATTEND Internal Medicine
PROC: 4A00X4Z Measurement of Central Nervous Electrical Activity, External Approach (ICD-10-PCS; principal; 2018-01-01)
DX: N17.9 Acute kidney failure, unspecified (principal); Z68.41 Body mass index [BMI] 40.0-44.9, adult; G25.3 Myoclonus; G25.89 Other specified extrapyramidal and movement disorders; R55 Syncope and collapse; F32.9 Major depressive disorder, single episode, unspecified; M16.12 Unilateral primary osteoarthritis, left hip; I10 Essential (primary) hypertension; G56.01 Carpal tunnel syndrome, right upper limb; F17.210 Nicotine dependence, cigarettes, uncomplicated; R26.81 Unsteadiness on feet; E66.01 Morbid (severe) obesity due to excess calories; E86.0 Dehydration; I95.9 Hypotension, unspecified; D64.9 Anemia, unspecified; M54.16 Radiculopathy, lumbar region; G89.4 Chronic pain syndrome; M48.061 Spinal stenosis, lumbar region without neurogenic claudication; T50.995A Adverse effect of other drugs, medicaments and biological substances, initial encounter; Z98.84 Bariatric surgery status; Z90.49 Acquired absence of other specified parts of digestive tract; Z88.5 Allergy status to narcotic agent; Z82.49 Family history of ischemic heart disease and other diseases of the circulatory system; Z80.0 Family history of malignant neoplasm of digestive organs; Z83.518 Family history of other specified eye disorder; Z82.3 Family history of stroke; Y92.9 Unspecified place or not applicable
CPT/HCPCS: 36415; 70450; 71045; 72148; 76775; 80048; 80053; 80076; 80307; 80320; 81003; 81015; 82140; 82272; 82550; 82607; 82728; 82746; 83540; 83605; 83735; 83880; 84443; 84484; 85025; 85027; 85379; 85610; 85730; 86140; 87086; 93005; 95816; 99285; A9270-GY; G0378; G0480; J0696; J1644

== ENCOUNTER 2018-03-10 08:48 | Day surgery (SDC) | payer OTHER ==
--- NOTE | 2018-03-02 03:55 | HP ---
PREOPERATIVE HISTORY AND PHYSICAL: DATE OF SURGERY/ADMISSION: 03/10/18 DATE OF OFFICE VISIT/ENCOUNTER: 02/25/18 ATTENDING SURGEON: Kemi Valderrama MD * (DICTATED BY MICKIE AZEVEDO) PROCEDURE: Right wrist carpal tunnel release. PRIMARY CARE PHYSICIAN: Dr. Vasquez at [facility]. CHIEF COMPLAINT: Numbness and tingling, right hand. HISTORY OF PRESENT ILLNESS: This is a 43-year-old female who complains of numbness and tingling in bilateral hands, equally bad for over a year. She does not get much relief from anything. She has tried wearing braces, but that is not helpful. She recently had nerve conduction studies, which showed bilateral carpal tunnel syndrome, moderate to severe on the right and moderate on the left. There was no specific activity or injury that caused her problem. The patient reports that all of her fingers are numb. She would like to proceed with surgical intervention for her right carpal tunnel and likely will follow up with her left carpal tunnel. The patient is on Suboxone for chronic back pain, this was prescribed by her primary care physician, Dr. Amira Vasquez. PAST MEDICAL HISTORY: 1. Hypertension. 2. Chronic back pain. 3. ADHD. 4. Anxiety. 5. Vertigo. 6. History of serotonin syndrome. 7. History of shortness of breath. 8. History of renal insufficiency. 9. History of alcohol abuse. PAST SURGICAL HISTORY: 1. Oral surgery. 2. Cholecystectomy. 3. Ectopic surgery. 4. Gastric sleeve surgery. CURRENT MEDICATIONS: 1. Albuterol sulfate. 2. Ferrous sulfate 325 mg daily. 3. Fluticasone propionate 50 mcg/Act 2 sprays each nostril daily. 4. Gabapentin 600 mg 4 times a day. 5. Glucosamine Con 1500 two daily. 6. Hydroxyzine HCl 10 mg daily. 7. Ibuprofen 200 mg 2 to 3 tabs p.r.n. 8. Lisinopril 20 mg daily. 9. Loratadine 10 mg daily. 10. Meclizine HCl p.r.n. 11. Methylphenidate HCl 20 mg daily. 12. Naproxen 500 mg twice a day p.r.n. pain. 13. Pantoprazole sodium 40 mg daily. 14. Suboxone 8/2 mg 1 strip sublingual twice daily. 15. Venlafaxine ER 150 mg 2 caps p.o. daily. ALLERGIES: MORPHINE AND TOPAMAX, reaction unknown. FAMILY MEDICAL HISTORY: Heart disease and colon cancer. SOCIAL HISTORY: The patient lives at home. She takes care of 3 children. She is a current smoker. She smokes a pack per day and has done so for 20 years. She denies recreational drug use. She reports no alcohol since June 2017 with a history of alcohol abuse. REVIEW OF SYSTEMS: Negative for general, cephalic, cardiovascular, respiratory , GI, , other musculoskeletal, integumentary, endocrine, neurologic, and hematologic symptoms. Infectious disease is negative for history of MRSA, hepatitis C, HIV. PHYSICAL EXAMINATION GENERAL: Well-developed, well-nourished 43-year-old female, in no acute distress. VITAL SIGNS: Height 5 feet tall, weight 219 pounds, blood pressure 139/88, pulse rate 88. HEENT: Normocephalic, atraumatic. Pupils are equal, round, and reactive to light and accommodation. Extraocular movements are intact. Throat is clear. NECK: Supple. No palpable lymph nodes. PULMONARY: Lungs are clear to auscultation bilaterally. No wheezes, rales, or rhonchi. CARDIOVASCULAR: Regular rate and rhythm. S1, S2. No murmurs, rubs or gallops. No edema. ABDOMEN: Positive bowel sounds, soft, nontender. NEUROLOGICAL: Alert and oriented x3. Cranial nerves II through XII are intact. Sensation is intact to light touch. MUSCULOSKELETAL: On exam of her right hand, there is no thenar wasting, but there is weakness with some abduction. She has full flexion and extension of her fingers. She has a positive Tinel sign at the median nerve at the right wrist. There is a negative Tinel sign at the ulnar nerve at the elbow, but there is some pain with palpation at the elbow. DIAGNOSTIC STUDIES: EMG nerve conduction study showed moderate to severe carpal tunnel syndrome on the right. IMPRESSION: Right carpal tunnel syndrome. PLAN: The patient is scheduled to undergo a right wrist carpal tunnel release with Dr. Valderrama on 03/10/18. She will return to the office 10 days postop for followup and suture removal. The patient is currently taking Suboxone for chronic pain and she will supplement with [id number] ibuprofen and/or Tylenol for postoperative pain management. MICKIE AZEVEDO [id number]/[facility] #: [id number] [facility]
[~2018-03-10 08:48] MED LIST: Buffered Lidocaine 0.9% SYRIN* 5 ML/SYR SYRINGE INTRADERM ONE; Lactated Ringers 1000 ML Bag* 1,000 ML IV SCH; Lidocaine 1% INJ* 10 MG/ML 30 ML SDV ONE
[2018-03-10] MEDS ORDERED: Naloxone* 0.4 MG/ML 1 ML VIAL IV PRN (09:01)
[2018-03-10] MEDS ORDERED: fentaNYL* 50 MCG/ML 2 ML VIAL (100 MCG VIAL) ONE (09:29)
[2018-03-10] MEDS ORDERED: Lidocaine 2% PF * 5 ML VIAL ONE (09:30)
[2018-03-10] MEDS ORDERED: Propofol* 10 MG/ML 20 ML BTL ONE (09:30)
[2018-03-10 10:14] VITALS: BP 111/63
--- NOTE | 2018-03-10 20:19 | OP ---
DATE OF OPERATION: 03/10/18 [facility] DATE OF : 77 SURGEON: Kemi Valderrama MD. TAR HEATER OPERATOR: MICKIE Vallejo ANESTHESIA: Local MAC. PRE-OP DIAGNOSIS: Right carpal tunnel syndrome. POST-OP DIAGNOSIS: Right carpal tunnel syndrome. OPERATIVE PROCEDURE: Right carpal tunnel release. ESTIMATED BLOOD LOSS: Zero. TOURNIQUET TIME: Approximately 10 minutes. INDICATIONS FOR PROCEDURE: Nano is a 43-year-old female with numbness and tingling in the median nerve distribution of her right hand. She presents for right carpal tunnel release. DESCRIPTION OF PROCEDURE: The patient was brought to the operating room, was given a sedation anesthetic and a local infiltration of 10 cc of 1% plain lidocaine into the palm of her right hand. The skin of her right hand and forearm was prepped and draped in usual sterile fashion. The hand and forearm were exsanguinated and the tourniquet elevated to 250 mmHg. A longitudinal incision was made in the palm in line with the ring finger. I dissected through the subcutaneous tissue down to the transverse carpal ligament. The ligament was divided sharply with the knife and then more proximally with the scissors. The nerve was dissected free from the surrounding tissue. There is an area of moderate compression in the midportion of the ligament. The wound was irrigated and the skin edges reapproximated with 4-0 nylon suture. The wound was dressed with Xeroform, 4x4, Webril, and an Parviz wrap. The patient tolerated the procedure well and was brought to the recovery room in good condition. [id number]/[facility] #: [id number] [facility]
== END 2018-03-10 10:20 | disposition home or self-care (01) ==
LOC: OREAST 08:48
PROVIDERS: ATTEND Orthopaedic Surgery
DX: G56.01 Carpal tunnel syndrome, right upper limb (principal); I10 Essential (primary) hypertension; F90.9 Attention-deficit hyperactivity disorder, unspecified type; F41.9 Anxiety disorder, unspecified; R42 Dizziness and giddiness; F17.210 Nicotine dependence, cigarettes, uncomplicated
CPT/HCPCS: 81025; J2704; J3010

== ENCOUNTER 2018-10-29 10:47 | Emergency (ER) | payer OTHER ==
[2018-10-29] MEDS ORDERED: Ondansetron INJ* 2 MG/ML VIAL IV ONE (10:56)
--- NOTE | 2018-10-29 11:01 | ED ---
Complex/Multi-Sys Presentation - HPI Summary HPI Summary: 43 year old F patient brought to [facility] by EMS accompanied by [id number] with a chief complaint of dizziness starting 2 days ago, 10/27/18 particularly when getting up from sitting and when turning her head. Patient reports vomiting, diaphoresis, chills, fevers, lightheadedness, constipation, and nausea. Patient reports she has vomited 3 times today. Patient reports each episode starts with dizziness and then she experiences lightheadedness and then vomits. Patient reports she has experiencing room spinning but not currently. Patient reports that she first had a migraine 3 days ago, 10/26/18, which is typical for her but which has not been treated. Patient reports 2 days ago she took her mother to the doctor in [place] and upon arriving back home she felt slightly dizzy and nauseous. Patient reports she felt the worse of the symptoms as she could not move, walk, or get out of bed. Patient reports to have been dizzy, nauseous, cold, and diaphoretic this morning at 0300, 10/29/18. Patient reports she was vomiting yesterday, 10/28/18. Patient reports she had no migraines yesterday and today but reports numbness and tingling on the tips of her fingers and toes. Patient denies diarrhea, cough, chest pain, shortness of breath.Symptoms aggravated by nothing. Symptoms alleviated by nothing. Patient denies any unusual stress and problems with medications. Patient reports she took her second Suboxone yesterday but could not take her third. Per Nurse Practitioner at [facility], current behavior is atypical. Hx hypertension. Surgical Hx: Gallbladder removed, gastric sleeve, ectopic . - History Of Current Complaint Time Seen by Provider: 10/29/18 10:48 Hx Obtained From: Patient Onset/Duration: Lasting Days - 2, Still Present Aggravating Factor(s): nothing Alleviating Factor(s): nothing Associated Signs And Symptoms: Positive: Nausea, Vomiting, Fever, Diaphoresis, Other - reports chills,lightheadedness, constipation, numbness/tingling, migraines ;; denies diarrhea, cough, chest pain, shortness of breath. Negative : Diarrhea - Allergies/Home Medications Allergies/Adverse Reactions: Allergies Allergy/AdvReac Type Severity Reaction Status Date / Time morphine Allergy Severe HYPERACTIVE Verified 10/29/18 11:02 topiramate [From Topamax] Allergy Agitation Verified 10/29/18 11:02 Home Medications: Home Medications ARIPiprazole TAB* [Abilify TAB*] 5 mg PO DAILY 10/29/18 [History Confirmed 11/09] Azelastine 0.15% NASAL(NF) [Astepro 0.15% NASAL (NF)] 1 spray BOTH NARES BID 11/09 [History Confirmed 10/29/18] Ketoconazole 2 % CREAM (NF) [Nizoral 2% CREAM (NF)] 1 applic TOPICAL BID [History Confirmed 10/29/18] Propranolol TAB* [Inderal TAB*] 80 mg PO DAILY 10/29/18 [History Confirmed 10/29] SUMAtriptan TAB* [Imitrex TAB*] 100 mg PO SEE INSTRUCTIONS 10/29/18 [History Confirmed 10/29/18] PMH/Surg Hx/FS Hx/Imm Hx Endocrine/Hematology History: Reports: Hx Anemia - on iron Denies: Hx Diabetes Cardiovascular History: Reports: Hx Hypertension Denies: Hx Pacemaker/ICD, Other Cardiovascular Problems/Disorders Respiratory History: Reports: Hx Asthma - sporadic per pt TOLD TO BRING INHALE Denies: Other Respiratory Problems/Disorders GI History: Reports: Hx Gastroesophageal Reflux Disease - on medication Denies: Other GI Disorders History: Reports: Other Problems/Disorders - states she was dehydrated when admitted Denies: Hx Renal Disease Musculoskeletal History: Reports: Hx Arthritis - bilateral hands, mostly thumbs , bilateral knees, Hx Back Problems - "broken back", Hx Tendonitis - Carpal tunnel, bilateral Comment Only: Other Musculoskeletal History - SPONDOLYSIS Sensory History: Reports: Hx Contacts or Glasses - GLASSES Denies: Hx Hearing Aid Opthamlomology History: Reports: Hx Contacts or Glasses - GLASSES Neurological History: Reports: Hx Migraine, Other Neuro Impairments/Disorders - adhd Psychiatric History: Reports: Hx Anxiety, Hx Depression, Hx Substance Abuse - on suboxone Denies: Hx Panic Disorder - Cancer History Hx Chemotherapy: No Hx Radiation Therapy: No - Surgical History Surgery Procedure, Year, and Place: CHOLECYSTECTOMY. ECTOPIC - & RUPTURED FALLOPIAN TUBE. GASTRIC SLEEVE. ORAL SURGERY - UNDER SEDATION. RIGHT CARPAL TUNNEL IN FEBRUARY [facility] [place] Hx Anesthesia Reactions: No - Family History Known Family History: Positive: Other - CVA in brother - Social History Alcohol Use: None Alcohol Amount: none recent-sober since June 22 2017 Hx Substance Use: No Substance Use Type: Reports: None Hx Tobacco Use: Yes Smoking Status (MU): Current Every Day Smoker Type: Cigarettes Amount Used/How Often: pack a day for 20 years Have You Smoked in the Last Year: Yes Review of Systems Positive: Fever, Chills, Skin Diaphoresis Negative: Chest Pain Negative: Shortness Of Breath, Cough Positive: Vomiting, Nausea, Other - constipation. Negative: Diarrhea Musculoskeletal: Other - numbness/tingling Neurological: Other - lightheadedness, dizziness, migraines All Other Systems Reviewed And Are Negative: Yes Physical Exam - Summary Physical Exam Summary: Constitutional: retching, diaphoretic Skin: Warm, Dry HENT: Normocephalic; Atraumatic Eyes: Conjunctiva normal Neck: Musculoskeletal ROM normal neck. (-) JVD, (-) Stridor, (-) Tracheal deviation Cardio: Rhythm regular, rate normal, Heart sounds normal; Intact distal pulses; The pedal pulses are 2+ and symmetric. Radial pulses are 2+ and symmetric. (-) Murmur Pulmonary/Chest wall: Effort normal. (-) Respiratory distress, (-) Wheezes, (-) Rales Abd: Soft, (-) tenderness, (-) Distension, (-) Guarding, (-) Rebound Musculoskeletal: (-) Edema Lymph: (-) Cervical adenopathy Neuro: Alert, Oriented x3 Psych: Mood and affect Normal GCS: 15 Triage Information Reviewed: Yes Vital Signs Reviewed: Yes Diagnostics - Laboratory Result Diagrams: 10/29/18 11:05 10/29/18 11:05 Lab Statement: Any lab studies that have been ordered have been reviewed, and results considered in the medical decision making process. - CT Brain CT CT Interpretation Completed By: Radiologist Summary of CT Findings: Per radiologist,. NO EVIDENCE FOR ACUTE INTRACRANIAL ABNORMALITY. ED physician has reviewed this report. Abdomen/Pelvis CT CT Interpretation Completed By: Radiologist Summary of CT Findings: Per radiologist,. No abnormal masses or fluid collections are noted. Patient has had prior. bariatric surgery. No evidence of bowel dilatation is noted. There is a hiatal hernia. noted. ED physician has reviewed this imaging report. - EKG 1103 Cardiac Rate: NL - 79 BPM EKG Rhythm: Sinus Rhythm Summary of EKG Findings: Sinus rhythm at 79 BPM. no STEMI. Re-Evaluation - Re-Evaluation First Eval Re-Evaluation Time: 11:25 Comment: Talked to Nurse Practitioner who noted patient had atypical behavior recently. Second Eval Re-Evaluation Time: 15:15 Comment: Physician discusses plan of care with patient. Patient reports she is still nauseous and dizzy. Third Eval Re-Evaluation Time: 17:51 Comment: Heart rate normalized, patient feels better and has tolerated her oral intake Fourth Eval Re-Evaluation Time: 10:05 Comment: much better, no orthastasis, ambulatory, tolerating PO Complex Multi-Symp Course/Dx Course Of Treatment: 43 year old F patient brought to [facility] by EMS accompanied by [id number] with a chief complaint of dizziness starting 2 days ago, particularly when getting up from sitting and when turning her head. Patient reports vomiting, diaphoresis, chills, fevers, lightheadedness, constipation, and nausea. Patient reports she has vomited 3 times today. Patient reports each episode starts with dizziness and then she experiences lightheadedness and then vomits. Patient reports she has experiencing room spinning but not currently. Patient reports that she first had a migraine 3 days ago, 10/26/18, which is typical for her but which has not been treated. Patient reports 2 days ago she took her mother to the doctor in [place] and upon arriving back home she felt slightly dizzy and nauseous. Patient reports she felt the worse of the symptoms as she could not move, walk, or get out of bed. Patient reports to have been dizzy, nauseous, cold, and diaphoretic this morning at 0300, 10/29/18. Patient reports she was vomiting yesterday, 10/28/18. Patient reports she had no migraines yesterday and today but reports numbness and tingling on the tips of her fingers and toes. Patient denies diarrhea, cough, chest pain, shortness of breath. Physical exam reveals no abnormalities except for retching and diaphoretic. GCS is 15. Blood work reveals no abnormalities except for RBC 4.97 H, BUN/Creatinine Ratio 26.8 H, Glucose 140 H, Lactic Acid 2.5 H, Alkaline Phosphatase 138 H, and Lipase <10 L. Urinalysis reveals no abnormalities except for Urine Ketones 2+ A. Patient was given 8 mg Zofran IV, saline IV, 131 ml iohexol IV, 10 mg metoclopramide hcl IV, 249.013 mls/hr thiamin hcl 100mg/folic aid 1 mg/multivitamins 10 ml in sodium chloride. EKG reveals Sinus rhythm at 79 BPM and no STEMI. Abdomen/Pelvis CT reveals No abnormal masses or fluid collections are noted. Patient has had prior bariatric surgery. No evidence of bowel dilatation is noted. There is a hiatal hernia noted. Brain CT reveals NO EVIDENCE FOR ACUTE INTRACRANIAL ABNORMALITY. General surgery was not concerned for gastric sleeve upon examination. Physician discusses discharge with patient who agrees with discharge. Patient will be discharged and follow up with primary care provider within 2-3 days. - Diagnoses Provider Diagnoses: Dehydration, Orthostasis, Vomiting - Physician Notifications Discussed Care Of Patient With: Maribel Marquez - General Surgeon Time Discussed With Above Provider: 15:18 Instructed by Provider To: Other - Looked at gastric sleeve and is not concerned Discharge - Sign-Out/Discharge Documenting (check all that apply): Patient Departure - discharge Patient Received Moderate/Deep Sedation with Procedure: No - Discharge Plan Condition: Stable Disposition: HOME Prescriptions: Ondansetron ODT TAB* [Zofran 4 MG Odt TAB*] 4 mg PO Q8H PRN #15 tab.odt PRN Reason: Nausea/Vomiting Patient Education Materials: Dizziness (ED) Referrals: Amira Vasquez MD [Primary Care Provider] - 3 Days Additional Instructions: Follow up with primary care provider within 3 days. Return to the ED for any new or worsening symptoms. - Attestation Statements Document Initiated by Bonyibe: Yes Documenting Scribe: Lida Buckley Provider For Whom Jason is Documenting (Include Credential): Dr. Austyn Lovettibtheron Attestation: Lida Sykes scribed for Dr. Austyn Barfield on 10/30/18 at 0009. Status of Scribe Document: Ready
[2018-10-29 11:14] LABS: Hematocrit 46 % (35-47); Hemoglobin 15.6 g/dL (12.0-16.0); Mean Corpuscular HGB Conc 34 g/dL (31-36); Mean Corpuscular Hemoglobin 31 pg (27-31); Mean Corpuscular Volume 93 fL (80-97); Mean Platelet Volume 9.5 fL (7.4-10.4); Platelet Count 212 10^3/uL (150-450); Red Blood Count 4.97 10^6 /uL (3.70-4.87); Red Cell Distribution Width 14 % (10-15); White Blood Count 7.4 10^3/uL (3.5-10.8)
[2018-10-29 11:39] LABS: ABS Lymphocytes 1.1 10^3/ul (1.0-4.8); ABS Monocytes 0.3 10^3/ul (0-0.8); ABS Neutrophils 5.9 10^3/ul (1.5-7.7); Eosinophil % 0.2 %; Lymphocyte % 15.4 %
[2018-10-29 11:40] LABS: ALT 18 U/L (7-52); AST 16 U/L (13-39); Albumin 4.3 g/dL (3.2-5.2); Albumin/Globulin Ratio 1.2 (1-3); Alkaline Phosphatase 138 U/L (34-104); Anion Gap 8 mmol/L (2-11); BUN/Creatinine Ratio 26.8 (8-20); Blood Urea Nitrogen 15 mg/dL (6-24); C Reactive Protein 5.73 mg/L (<8.01); CO2 Carbon Dioxide 23 mmol/L (22-32); Calcium 9.4 mg/dL (8.6-10.3); Chloride 107 mmol/L (101-111); EGFR African American 143.6 (>60); EGFR Non-African American 118.7 (>60); Globulin 3.6 g/dL (2-4); Glucose 140 mg/dL (70-100); Potassium 3.9 mmol/L (3.5-5.0); Sodium 138 mmol/L (135-145); Total Protein 7.9 g/dL (6.4-8.9)
[2018-10-29] MEDS ORDERED: NS 0.9% 1000 ML** 2,000 ML IV ONE (12:18)
[2018-10-29 13:26] LABS: Urine Appearance Cloudy; Urine Bilirubin Negative (Negative); Urine Blood Negative (Negative); Urine Color Yellow; Urine Glucose Negative (Negative); Urine Ketones 2+ (Negative); Urine Nitrite Negative (Negative); Urine Protein Negative (Negative); Urine Specific Gravity 1.021 (1.010-1.030); Urine Urobilinogen Negative (Negative)
[2018-10-29] MEDS ORDERED: Iohexol 300* (CONTRAST) 10 ML SDV IV ONE (13:45)
[2018-10-29] MEDS ORDERED: Thiamine IV 100 MG, Folic Acid IV* 1 MG, Multiple Vitamin IV ADULT* 10 ML in NS 0.9% 10... IV ONE (15:22)
[2018-10-29] MEDS ORDERED: Metoclopramide IV* 5 MG/ML 2 ML VIAL IV SLOW PU ONE (15:23)
[2018-10-29] MEDS ORDERED: NS 0.9% 1000 ML** 1,000 ML ONE (15:30)
[2018-10-29 21:31] VITALS: BP 149/98
--- NOTE | 2018-10-30 02:23 | CONS ---
CC: Dr. Amira Vasquez at [facility] in [place] SURGICAL CONSULTATION NOTE: DATE OF CONSULT: 10/29/18 LOCATION: The patient was seen in the ED. ATTENDING SURGEON: Dr. Maribel Marquez. CHIEF COMPLAINT: Dizziness, nausea, and vomiting. HISTORY OF PRESENT ILLNESS: This is a 43-year-old female who underwent laparoscopic sleeve gastrectomy approximately 5 years ago in [place]. She states that on Friday this week she experienced a headache, which is normal for her with a history of migraines. In subsequent days, this was associated with dizziness and queasiness and on Friday she was experiencing sweats and cold chills as well as ongoing dizziness, queasiness, nausea and dry heaves. She has continued to have dry heaves and vomiting of bilious material over the last 24 hours. She has been unable to sleep and continued to have sweats and chills. She denies any blood in her vomit. She has had some minor abdominal cramping but no significant abdominal pain per se. She reports her last bowel movement being on Friday, which she describes as normal for her. She does have some tendency toward constipation. She denies any blood per rectum. She has been passing flatus since onset of the present illness. She does not report any regular GERD symptoms. She has had additional abdominal surgeries ( see below). She did have a similar episode in August of this year, which resolved on its own over a course of about 3 days. She states that the dizziness is largely positional affecting her most when she is flat and/or when she changes position or turns her head. PAST MEDICAL HISTORY: Morbid obesity, migraine headaches, hypertension, chronic pain secondary to degenerative joint disease and chronic back pain, anxiety and depression. PAST SURGICAL HISTORY: Previous surgeries include laparoscopic sleeve gastrectomy as noted above (she had initial weight loss of approximately 110 pounds and has regained approximately 50 to 60 pounds). She is also status post laparoscopic cholecystectomy and salpingectomy for ruptured fallopian tube related to an ectopic in 2007. She is status post bilateral carpal tunnel release last year and multiple dental extractions. CURRENT MEDICATIONS: Include: 1. Abilify. 2. Azelastine nasal spray. 3. Sumatriptan p.r.n. 4. Lisinopril. 5. Suboxone. 6. Naproxen 500 mg b.i.d. (the patient was advised against using full-dose NSAIDs on an ongoing basis after her gastric sleeve). 7. Gabapentin 600 mg 4 times a day. 8. Hydroxyzine p.r.n. DRUG ALLERGIES: MORPHINE (excitability and anger), TOPIRAMATE (same reaction). FAMILY HISTORY: Negative for anesthesia problems, bleeding, or clotting disorders. SOCIAL HISTORY: The patient lives with her 4 children and her boyfriend. She is not currently working. She is a current smoker one-half pack per day. She denies use of alcohol or recreational drugs. REVIEW OF SYSTEMS: General: As above per HPI. No additional symptoms reported. HEENT: No problems reported. Cardiovascular: No chest pain, palpitations, or history of heart murmur. Respiratory: No history of asthma, chronic cough, or shortness of breath. GI: As above per HPI. : She denies dysuria, increased frequency, or hematuria. MANAGER PARTY: I did not inquire. Endocrine : No diabetes or thyroid dysfunction. PHYSICAL EXAM: Height 5 feet, weight 217 pounds, BMI 42. Temperature 97.6, blood pressure ranging from 125 to 185 systolic over 84 to 117 diastolic, pulse rate ranging from 71 to 122, respirations 20, room air saturation 99%. General : Well- nourished, obese female, in mild distress. Skin: Diaphoretic. HEENT : Pupils equal, round, and reactive. EOMs intact. Oropharynx: Mucous membranes moist. She is currently eating ice chips. She is edentulous. Neck: No lymphadenopathy, thyromegaly, or masses. Heart: Regular rate and rhythm. No murmur appreciated. Lungs: Clear to auscultation. No rales or wheezes. Breasts: Not examined. Abdomen: Multiple well-healed surgical scars. Bowel sounds are present. No distention or tympany. Soft with no significant tenderness to palpation (there is some very mild tenderness in the mid epigastrium only). No palpable masses or organomegaly, although exam is limited by body habitus. No palpable hernias. Genitalia and Rectal: Not done. Back: No spinous process or CVA tenderness. Extremities: No edema. Neurological: Grossly intact. DIAGNOSTIC STUDIES/LAB DATA: White blood cell count 7400, hemoglobin 15.6. Chemistries essentially normal with the exception of mild elevation of alkaline phosphatase at 138. Initial lactic acid was 2.5 but was normal at 1.1 on repeat. Lipase was less than 10. CRP was 5.7. Urinalysis was notable for 2+ ketones. CT scan of the abdomen and pelvis with IV and oral contrast was reviewed personally, showing evidence of prior sleeve gastrectomy, also noted is a moderate hiatal hernia. Contrast appeared to be present in the distal ileum and without small bowel dilatation. Colon was moderately full of stool. IMPRESSION: Nausea and vomiting, likely secondary to vertigo; no apparent surgical cause. PLAN: The patient is reassured. Case is also discussed with Dr. Marquez, who saw the patient in the ED. The patient will be managed medically through the ED team. No surgical followup required. MICKIE DENTON [id number]/[facility] #: [id number] MTDTosha
== END 2018-10-29 20:30 | disposition home or self-care (01) ==
LOC: ED 10:47
DX: E86.0 Dehydration (principal); I95.1 Orthostatic hypotension; R11.2 Nausea with vomiting, unspecified; D64.9 Anemia, unspecified; I10 Essential (primary) hypertension; J45.909 Unspecified asthma, uncomplicated; K21.9 Gastro-esophageal reflux disease without esophagitis; E66.9 Obesity, unspecified; F17.210 Nicotine dependence, cigarettes, uncomplicated; Z88.6 Allergy status to analgesic agent; Z88.5 Allergy status to narcotic agent; Z79.899 Other long term (current) drug therapy; Z90.49 Acquired absence of other specified parts of digestive tract; Z98.84 Bariatric surgery status; Z90.721 Acquired absence of ovaries, unilateral; K44.9 Diaphragmatic hernia without obstruction or gangrene
CPT/HCPCS: 36415; 70450; 74177; 80053; 81003; 83605; 83690; 84425; 85025; 86140; 93005; 96361; 96365; 96366; 96375; 99285; J2405; J2765; J3411; Q9967

== ENCOUNTER → 2018-11-27 07:53 | Day surgery (SDC) | payer OTHER ==
[~2018-11-27 07:53] MED LIST changes: +Acetaminophen IV 1GM/100ML * 100 ML ONE; -Buffered Lidocaine 0.9% SYRIN* 5 ML/SYR SYRINGE INTRADERM ONE; +Buffered Lidocaine 1% SYRIN* 1 ML/SYRINGE INTRADERM ONE; +Bupivacaine 0.5% W/EPI SDV* 10 ML VIAL INJ ONE; +Dexamethasone IV* 4 MG/ML 1 ML (4 MG) ONE; +DiMENhydriNATE IV* 50 MG/ML VIAL IV PUSH PRN; +DiMENhydriNATE IV* 50 MG/ML VIAL ONE; +Famotidine IV* 10 MG/ML 2 ML (20 mg) IV ONE; +Famotidine IV* 10 MG/ML 2 ML (20 mg) ONE; +Ketorolac INJ* 30 MG/ML 1 ML VIAL ONE; -Lidocaine 1% INJ* 10 MG/ML 30 ML SDV ONE; +Lidocaine 2% PF * 5 ML VIAL ONE; +Midazolam* 1 MG/ML 5 ML VIAL (5 MG) ONE; +Ondansetron INJ* 2 MG/ML VIAL ONE; +Propofol* 10 MG/ML 20 ML BTL ONE; +Rocuronium* 10 MG/ML VIAL ONE; +Succinylcholine* 20 MG/ML 10 ML VIAL ONE; +ceFOXitin(*) 1 GM VIAL ONE; +ceFOXitin(*) 2 GM in NS 0.9% 100 ML* 100 ML IVPB ONE; +fentaNYL* 50 MCG/ML 2 ML VIAL (100 MCG VIAL) ONE
[2018-11-27 11:19] VITALS: BP 154/104
--- NOTE | 2018-11-27 12:18 | OP ---
DATE OF OPERATION: 11/27/18 - [facility] DATE OF : 77 SURGEON: Alan Beebe MD [employer] MANAGER: None. ANESTHESIA: General endotracheal tube. PRE-OP DIAGNOSIS: Excessive and frequent menstruation and desires permanent sterilization. POST-OP DIAGNOSIS: Excessive and frequent menstruation and desires permanent sterilization. OPERATIVE PROCEDURE: Laparoscopic tubal ligation, D and C, hysteroscopy, endometrial ablation. ESTIMATED BLOOD LOSS: Minimal. SPECIMENS: Endometrium. FINDINGS: On hysteroscopy, the uterine cavity was normal in appearance with no polyps or fibroids within it. Both tubal ostia were visualized. On laparoscopy, the anterior bladder flap appeared normal. The cul-de-sac appeared normal. The left fallopian tube was absent with line of kevin consistent with previous ectopic . The right fallopian tube appeared normal. Both ovaries and uterus all appeared normal. She had second-degree prolapse with tenaculum downward pressure. Liver surface was smooth. DESCRIPTION OF PROCEDURE: The patient identified, procedure identified as laparoscopic tubal ligation, D and C, hysteroscopy, endometrial ablation. The patient was taken to the operating room, prepped and draped in the usual fashion. In dorsal lithotomy position, under general anesthesia, a single tooth tenaculum was placed through the anterior lip of the cervix. The cervix was sounded to 8.5 cm. The Hegar dilator was used to sound the endocervix which was 3 cm making the cavity length 5.5 cm. The hysteroscope inserted and the above findings were noted. A sharp curette was inserted and sharp curettage performed. The NovaSure device was opened. The array was checked and the NovaSure device was inserted with a width of 3.7 cm, power setting, I believe, was 109. The CO2 perforation test was performed and the device passed. NovaSure ablation took place for 45 seconds. At the end of the procedure, device was removed and the hysteroscope was reinserted and no perforations or injuries and a good ablation was noted. Now, attention was turned to laparoscopic tubal ligation. The small infraumbilical incision was made and the Veress needle inserted through this. The abdomen was insufflated to 50 mmHg. The Veress needle was removed and the trocar was inserted under direct visualization. Using the Visiport, above findings were noted. A second trocar was placed 2 cm above the pubic symphysis in the midline under direct visualization. The bipolar Kleppinger cautery was inserted and the right fallopian tube was grasped in to mid portion, followed out to its fimbriated ends and fulgurated x3 with attention being given to the fimbriated ends. The other area for the left fallopian tube was inspected and found that the total fallopian tube was removed with a line of kevin in its place. The ovary appeared normal on that side. All instruments were removed from the abdomen. The abdomen was deflated of CO2. All sponge and instrument counts were correct , and the patient returned to recovery room in stable condition after the skin was closed with skin glue. [id number]/[facility] #: [id number] GENIA
== END | disposition home or self-care (01) ==
LOC: OR 07:53
PROVIDERS: ATTEND Obstetrics & Gynecology
DX: N92.0 Excessive and frequent menstruation with regular cycle (principal); Z30.2 Encounter for sterilization; N84.0 Polyp of corpus uteri; I10 Essential (primary) hypertension; Z72.0 Tobacco use; M19.90 Unspecified osteoarthritis, unspecified site; F41.8 Other specified anxiety disorders; L30.9 Dermatitis, unspecified
CPT/HCPCS: 81025; 88305; J0330; J0694; J1100; J1240; J1885; J2250; J2405; J2704; J3010